=== PATIENT | male | born 1970 | race Caucasian/White ===

== ENCOUNTER 2021-03-18 21:31 | Inpatient (IN) ==
[2021-03-19] MEDS ORDERED: Naloxone 0.4 MG/ML INJ IVP PRN (00:16)
[2021-03-19] MEDS ORDERED: Melatonin 3 MG TABLET PO PRN (00:16)
[2021-03-19] MEDS ORDERED: *HR* Heparin 5,000 UNIT/ML VIAL IVP PRN ×2 (00:23→00:51)
[2021-03-19] MEDS ORDERED: Heparin 25,000UNIT/250ML 1/2NS 25,000 UNIT/250 ML IV.SOLN IVC SCH (00:30)
[2021-03-19 02:02] LABS: Amphetamine Screen,Urine Negative ng/mL (Cutoff=1000); Barbiturate Screen,Urine Negative ng/mL (Cutoff=200); Benzodiazepines Screen,Urine Negative ng/mL (Cutoff=200); Cannabinoid Screen,Urine Negative ng/mL (Cutoff = 50); Cocaine Screen,Urine Negative ng/mL (Cutoff= 300); Opiate Screen,Urine Negative ng/mL (Cutoff=300); Phencyclidine Screen,Urine Negative ng/mL (Cutoff=25)
[2021-03-19 02:36] LABS: ABG Base Excess 7 mEq/L (-2 to 3); ABG HCO3 38 mEq/L (21-27); ABG Oxygen Saturation 95 % (95-98); ABG PCO2 73 mmHg (35-45); ABG PH 7.33 pH Units (7.32-7.45); ABG PO2 87 mmHg (85-104); ABG TCO2 40 mEq/L (20-26)
[2021-03-19 04:39] LABS: Hematocrit 57.7 % (37.5-50.1); Hemoglobin 17.9 g/dL (12.9-16.9); Mean Corpuscular Hemoglobin 29.5 pg (28.0-33.3); Mean Corpuscular Volume 95.2 fL (83.0-100.0); Mean Platelet Volume 11.1 fL (9.4-12.4); Nucleated Red Blood Cells 0.4 /100 WBC (0); Platelet Count 161 K/mcL (140-400); Red Blood Count 6.06 M/mcL (4.19-5.50); Red Cell Distribution Width 16.2 % (11.5-14.5); White Blood Count 5.5 K/mcL (4.3-11.1)
[2021-03-19 04:47] LABS: Albumin 3.2 g/dL (3.5-5.7); Albumin/Globulin Ratio 0.9 (1.1-2.2); Bilirubin,Direct 0.2 mg/dL (0.0-0.2); Bilirubin,Indirect 0.9 mg/dL (0.0-1.0); Bilirubin,Total 1.1 mg/dL (0.3-1.0); C-Reactive Protein 42 mg/L (Less than 10); Globulin 3.7 g/dL (2.4-3.5); Total Protein 6.9 g/dL (6.4-8.9)
[2021-03-19 05:01] LABS: BUN/Creatinine Ratio 20 (6-26); Blood Urea Nitrogen 12 mg/dL (6-20); Calcium 8.9 mg/dL (8.6-10.3); Carbon Dioxide 35 mEq/L (23-29); Chloride 100 mEq/L (98-107); Ethanol < 10 mg/dL (Less than 10); Glucose 190 mg/dL (70-105); Magnesium 2.1 mg/dL (1.6-2.6); Osmolality,Calculated 295 (280-300); Potassium 4.4 mEq/L (3.5-5.1); Sodium 140 mEq/L (136-145); eGFR For African Americans > 60 (> 60); eGFR For Non-African Americans > 60 (> 60)
[2021-03-19 05:03] LABS: Ferritin 137 ng/mL (20-250)
[2021-03-19 05:04] LABS: Estimated Average Glucose 255 mg/dl; Hemoglobin A1C 10.5 %
[2021-03-19 05:32] LABS: Heparin anti-factor XA UFH 0.24 IU/mL (0.30-0.70); INR 1.4; Prothrombin Time 15.5 Seconds (9.4-12.1)
[2021-03-19 05:44] LABS: Monocytes # 0.4 K/mcL (0.0-1.3); Neutrophils # 2.9 K/mcL (1.6-8.9); Platelet Estimate Normal (Normal); Reactive Lymphocytes Present (Not Present)
[2021-03-19] MEDS ORDERED: Lactulose 200 GM, Sodium Chloride IRRigation 700 ML RC ONE (08:22)
[2021-03-19] MEDS: cefTRIAXone 1,000 MG in Water for inj. (sterile) 10 ML IVP SCH (08:44)
[2021-03-19] MEDS ORDERED: Dexamethasone Sodium Phos/PF 10 MG/ML VIAL IVP SCH (09:00)
[2021-03-19] MEDS ORDERED: Perflutren Lipid Microsphere 1.3 ML in 0.9 % Sodium Chloride 8.7 ML IVP PRN (09:43)
[2021-03-19] MEDS: Heparin 25,000 UNIT/250 ML 25,000 UNIT/250 ML IV.SOLN IVC SCH (10:17)
[2021-03-19] MEDS ORDERED: Lactulose Oral Soln 20 GM/30 ML UDC PO ONE (11:19)
[2021-03-19] MEDS ORDERED: Azithromycin 500 MG in 0.9 % Sodium Chloride 250 ML IVPB SCH (18:00)
[2021-03-19] MEDS: Lactulose Oral Soln 20 GM/30 ML UDC PO SCH (19:49)
[2021-03-20] MEDS: Heparin 25,000 UNIT/250 ML 25,000 UNIT/250 ML IV.SOLN IVC SCH (03:12)
[2021-03-20 04:10] LABS: Basophils # 0.1 K/mcL (0.0-0.2); Basophils % 1.1 %; Hematocrit 54.8 % (37.5-50.1); Hemoglobin 16.8 g/dL (12.9-16.9); Immature Granulocytes % 1.1 % (0-4); Lymphocytes # 2.6 K/mcL (0.6-4.6); Lymphocytes % 31.1 %; Mean Corpuscular HGB Conc 30.7 g/dL (31.6-35.5); Mean Corpuscular Hemoglobin 28.6 pg (28.0-33.3); Mean Corpuscular Volume 93.4 fL (83.0-100.0); Mean Platelet Volume 11.4 fL (9.4-12.4); Monocytes # 0.9 K/mcL (0.0-1.3); Monocytes % 10.7 %; Neutrophils # 4.6 K/mcL (1.6-8.9); Platelet Count 165 K/mcL (140-400); Red Blood Count 5.87 M/mcL (4.19-5.50); Red Cell Distribution Width 15.8 % (11.5-14.5); White Blood Count 8.2 K/mcL (4.3-11.1)
[2021-03-20 04:27] LABS: BUN/Creatinine Ratio 27 (6-26); Blood Urea Nitrogen 15 mg/dL (6-20); Calcium 8.8 mg/dL (8.6-10.3); Carbon Dioxide 36 mEq/L (23-29); Chloride 100 mEq/L (98-107); Glucose 151 mg/dL (70-105); Magnesium 2.3 mg/dL (1.6-2.6); Osmolality,Calculated 294 (280-300); Potassium 3.9 mEq/L (3.5-5.1); Sodium 140 mEq/L (136-145); eGFR For African Americans > 60 (> 60); eGFR For Non-African Americans > 60 (> 60)
[2021-03-20 04:52] LABS: Platelet Estimate Normal (Normal); Reactive Lymphocytes Present (Not Present)
[2021-03-20] MEDS ORDERED: *HR* Dextrose 50 % in Water (Syg) 50 ML SYRINGE IVP PRN ×2 (07:46→12:44)
[2021-03-20] MEDS ORDERED: D5% in Water 1,000 ML IVC PRN ×2 (07:46→12:44)
[2021-03-20] MEDS ORDERED: Dextrose Gel 15 GM/37.5 ML TUBE PO PRN ×4 (07:46→12:44)
[2021-03-20] MEDS: cefTRIAXone 1,000 MG in Water for inj. (sterile) 10 ML IVP SCH (08:20)
[2021-03-20] MEDS: Lactulose Oral Soln 20 GM/30 ML UDC PO SCH ×2 (08:21→20:08)
[2021-03-20] MEDS: Insulin LISPRO 300 UNITS/3 ML VIAL SUBQ SCH ×4 (08:50→20:09)
[2021-03-20] MEDS ORDERED: Naloxone 0.4 MG/ML INJ IVP PRN (12:44)
[2021-03-20] MEDS: Methadone Oral Concentrate 50 MG/5 ML UDC PO SCH (13:08)
[2021-03-20] MEDS: Nicotine 21 MG PATCH.TD24 TD SCH (14:50)
[2021-03-20] MEDS ORDERED: Azithromycin 500 MG in 0.9 % Sodium Chloride 250 ML IVPB SCH (18:00)
[2021-03-21] MEDS: Insulin LISPRO 300 UNITS/3 ML VIAL SUBQ SCH ×7 (00:21→23:39)
[2021-03-21 04:30] LABS: Basophils % 0.4 %; Hematocrit 53.6 % (37.5-50.1); Hemoglobin 16.7 g/dL (12.9-16.9); Lymphocytes # 2.1 K/mcL (0.6-4.6); Lymphocytes % 25.9 %; Mean Corpuscular HGB Conc 31.2 g/dL (31.6-35.5); Mean Corpuscular Hemoglobin 28.9 pg (28.0-33.3); Mean Corpuscular Volume 92.7 fL (83.0-100.0); Mean Platelet Volume 11.2 fL (9.4-12.4); Monocytes # 0.9 K/mcL (0.0-1.3); Monocytes % 11.5 %; Platelet Count 159 K/mcL (140-400); Red Blood Count 5.78 M/mcL (4.19-5.50); Red Cell Distribution Width 15.7 % (11.5-14.5); Segmented Neutrophils % 61.2 %; White Blood Count 8.1 K/mcL (4.3-11.1)
[2021-03-21 04:45] LABS: Alanine Aminotransferase 35 Units/L (7-52); Albumin 2.9 g/dL (3.5-5.7); Albumin/Globulin Ratio 0.9 (1.1-2.2); Alkaline Phosphatase 99 Units/L (34-104); Aspartate Amino Transferase 39 Units/L (13-39); BUN/Creatinine Ratio 29 (6-26); Bilirubin,Direct 0.2 mg/dL (0.0-0.2); Bilirubin,Indirect 0.6 mg/dL (0.0-1.0); Bilirubin,Total 0.8 mg/dL (0.3-1.0); Blood Urea Nitrogen 16 mg/dL (6-20); Calcium 8.9 mg/dL (8.6-10.3); Carbon Dioxide 36 mEq/L (23-29); Chloride 101 mEq/L (98-107); Globulin 3.4 g/dL (2.4-3.5); Glucose 112 mg/dL (70-105); Magnesium 2.2 mg/dL (1.6-2.6); Osmolality,Calculated 290 (280-300); Potassium 4.4 mEq/L (3.5-5.1); Sodium 139 mEq/L (136-145); Total Protein 6.3 g/dL (6.4-8.9); eGFR For African Americans > 60 (> 60); eGFR For Non-African Americans > 60 (> 60)
[2021-03-21 04:52] LABS: Platelet Estimate Normal (Normal)
[2021-03-21] MEDS: *HR* Enoxaparin 40 MG/0.4 ML SYRINGE SQ SCH (06:16)
[2021-03-21] MEDS: Methadone Oral Concentrate 50 MG/5 ML UDC PO SCH (08:11)
[2021-03-21] MEDS: Lactulose Oral Soln 20 GM/30 ML UDC PO SCH ×2 (08:11→20:02)
[2021-03-21] MEDS: Nicotine 21 MG PATCH.TD24 TD SCH (08:12)
[2021-03-21] MEDS ORDERED: cefTRIAXone 1,000 MG in Water for inj. (sterile) 10 ML IVP SCH (09:00)
[2021-03-21 15:17] LABS: ABG Base Excess 4 mEq/L (-2 to 3); ABG HCO3 38 mEq/L (21-27); ABG Oxygen Saturation 98 % (95-98); ABG PCO2 92 mmHg (35-45); ABG PH 7.22 pH Units (7.32-7.45); ABG PO2 124 mmHg (85-104); ABG TCO2 40 mEq/L (20-26)
[2021-03-21 16:29] LABS: ABG Base Excess 5 mEq/L (-2 to 3); ABG HCO3 35 mEq/L (21-27); ABG Oxygen Saturation 96 % (95-98); ABG PCO2 69 mmHg (35-45); ABG PH 7.31 pH Units (7.32-7.45); ABG PO2 92 mmHg (85-104); ABG TCO2 37 mEq/L (20-26)
[2021-03-22 03:42] LABS: Hemoglobin 16.8 g/dL (12.9-16.9); Mean Corpuscular HGB Conc 30.2 g/dL (31.6-35.5); Mean Corpuscular Hemoglobin 28.1 pg (28.0-33.3); Mean Corpuscular Volume 93.1 fL (83.0-100.0); Mean Platelet Volume 10.8 fL (9.4-12.4); Platelet Count 145 K/mcL (140-400); Red Blood Count 5.98 M/mcL (4.19-5.50); Red Cell Distribution Width 15.6 % (11.5-14.5); White Blood Count 9.3 K/mcL (4.3-11.1)
[2021-03-22 03:58] LABS: BUN/Creatinine Ratio 22 (6-26); Blood Urea Nitrogen 12 mg/dL (6-20); Calcium 8.9 mg/dL (8.6-10.3); Carbon Dioxide 35 mEq/L (23-29); Chloride 98 mEq/L (98-107); Glucose 102 mg/dL (70-105); Osmolality,Calculated 284 (280-300); Potassium 4.3 mEq/L (3.5-5.1); Sodium 137 mEq/L (136-145); eGFR For African Americans > 60 (> 60); eGFR For Non-African Americans > 60 (> 60)
[2021-03-22 03:59] LABS: Hematocrit 55.7 % (37.5-50.1)
[2021-03-22] MEDS: Insulin LISPRO 300 UNITS/3 ML VIAL SUBQ SCH ×6 (04:09→23:56)
[2021-03-22] MEDS: *HR* Enoxaparin 40 MG/0.4 ML SYRINGE SQ SCH (05:04)
[2021-03-22] MEDS: Nicotine 21 MG PATCH.TD24 TD SCH (08:34)
[2021-03-22] MEDS: Methadone Oral Concentrate 50 MG/5 ML UDC PO SCH ×2 (09:20→14:05)
[2021-03-22] MEDS: Lactulose Oral Soln 20 GM/30 ML UDC PO SCH ×2 (12:12→20:23)
[2021-03-22] MEDS ORDERED: *HR* LORazepam 2 MG/ML VIAL IVP PRN (13:47)
[2021-03-22] MEDS ORDERED: *HR* LORazepam 2 MG/ML VIAL IVP ONE ×2 (13:48→13:49)
[2021-03-22] MEDS: *HR* LORazepam 2 MG/ML VIAL IVP PRN ×2 (16:46→21:35)
[2021-03-22] MEDS: Thiamine (B-1) 100 MG, Folic Acid 1 MG, MVI, adult with vitamin K 10 ML in 0.9 % Sodi... IVPB SCH (16:47)
[2021-03-23] MEDS: *HR* LORazepam 2 MG/ML VIAL IVP PRN ×2 (02:51→21:32)
[2021-03-23] MEDS: Insulin LISPRO 300 UNITS/3 ML VIAL SUBQ SCH ×5 (03:14→20:54)
[2021-03-23 04:00] LABS: Hemoglobin 17.5 g/dL (12.9-16.9); Mean Corpuscular Hemoglobin 28.5 pg (28.0-33.3); Mean Corpuscular Volume 92.5 fL (83.0-100.0)
[2021-03-23 04:02] LABS: Immature Platelets 7.7 % (1.1-6.1); Mean Corpuscular HGB Conc 30.8 g/dL (31.6-35.5); Mean Platelet Volume 11.2 fL (9.4-12.4); Red Blood Count 6.15 M/mcL (4.19-5.50); Red Cell Distribution Width 15.6 % (11.5-14.5); White Blood Count 10.1 K/mcL (4.3-11.1)
[2021-03-23 04:07] LABS: Hematocrit 56.9 % (37.5-50.1)
[2021-03-23 04:22] LABS: BUN/Creatinine Ratio 22 (6-26); Blood Urea Nitrogen 12 mg/dL (6-20); Carbon Dioxide 34 mEq/L (23-29); Chloride 99 mEq/L (98-107); Glucose 102 mg/dL (70-105); Osmolality,Calculated 286 (280-300); Potassium 4.3 mEq/L (3.5-5.1); Sodium 138 mEq/L (136-145); eGFR For African Americans > 60 (> 60); eGFR For Non-African Americans > 60 (> 60)
[2021-03-23] MEDS: *HR* Enoxaparin 40 MG/0.4 ML SYRINGE SQ SCH (05:18)
[2021-03-23] MEDS: Methadone Oral Concentrate 50 MG/5 ML UDC PO SCH (08:31)
[2021-03-23] MEDS: Lactulose Oral Soln 20 GM/30 ML UDC PO SCH ×3 (08:32→20:13)
[2021-03-23] MEDS: Nicotine 21 MG PATCH.TD24 TD SCH (08:32)
[2021-03-23 12:23] LABS: ABG Base Excess 5 mEq/L (-2 to 3); ABG HCO3 33 mEq/L (21-27); ABG Oxygen Saturation 92 % (95-98); ABG PCO2 59 mmHg (35-45); ABG PH 7.36 pH Units (7.32-7.45); ABG PO2 68 mmHg (85-104); ABG TCO2 35 mEq/L (20-26)
[2021-03-23] MEDS ORDERED: Lactulose Oral Soln 20 GM/30 ML UDC PO SCH (15:00)
[2021-03-23] MEDS: Thiamine (B-1) 100 MG, Folic Acid 1 MG, MVI, adult with vitamin K 10 ML in 0.9 % Sodi... IVPB SCH (17:45)
[2021-03-24] MEDS: Insulin LISPRO 300 UNITS/3 ML VIAL SUBQ SCH ×7 (01:18→23:48)
[2021-03-24] MEDS: *HR* LORazepam 2 MG/ML VIAL IVP PRN (02:02)
[2021-03-24] MEDS: *HR* Enoxaparin 40 MG/0.4 ML SYRINGE SQ SCH (05:38)
[2021-03-24] MEDS: Nicotine 21 MG PATCH.TD24 TD SCH (08:21)
[2021-03-24] MEDS: Lactulose Oral Soln 20 GM/30 ML UDC PO SCH ×3 (08:24→21:06)
[2021-03-24] MEDS: Methadone Oral Concentrate 50 MG/5 ML UDC PO SCH (09:42)
[2021-03-24 10:29] LABS: ABG Base Excess 7 mEq/L (-2 to 3); ABG HCO3 35 mEq/L (21-27); ABG Oxygen Saturation 91 % (95-98); ABG PCO2 56 mmHg (35-45); ABG PO2 62 mmHg (85-104); ABG TCO2 36 mEq/L (20-26)
[2021-03-24] MEDS: Thiamine (B-1) 100 MG, Folic Acid 1 MG, MVI, adult with vitamin K 10 ML in 0.9 % Sodi... IVPB SCH (19:18)
[2021-03-25] MEDS ORDERED: *HR* LORazepam 2 MG/ML VIAL IVP ONE ×4 (00:13→16:49)
[2021-03-25] MEDS: Insulin LISPRO 300 UNITS/3 ML VIAL SUBQ SCH ×5 (04:05→21:41)
[2021-03-25] MEDS: *HR* Enoxaparin 40 MG/0.4 ML SYRINGE SQ SCH (05:12)
[2021-03-25 05:16] LABS: Hemoglobin 18.3 g/dL (12.9-16.9)
[2021-03-25 05:18] LABS: Immature Platelets 12.1 % (1.1-6.1); Mean Corpuscular Hemoglobin 29.2 pg (28.0-33.3); Mean Corpuscular Volume 91.4 fL (83.0-100.0); Mean Platelet Volume 11.6 fL (9.4-12.4); Red Blood Count 6.26 M/mcL (4.19-5.50); Red Cell Distribution Width 15.3 % (11.5-14.5); White Blood Count 10.9 K/mcL (4.3-11.1)
[2021-03-25 05:22] LABS: Hematocrit 57.2 % (37.5-50.1)
[2021-03-25 05:32] LABS: BUN/Creatinine Ratio 25 (6-26); Blood Urea Nitrogen 14 mg/dL (6-20); Calcium 9.6 mg/dL (8.6-10.3); Carbon Dioxide 30 mEq/L (23-29); Chloride 98 mEq/L (98-107); Glucose 101 mg/dL (70-105); Osmolality,Calculated 283 (280-300); Potassium 3.9 mEq/L (3.5-5.1); Sodium 136 mEq/L (136-145); eGFR For African Americans > 60 (> 60); eGFR For Non-African Americans > 60 (> 60)
[2021-03-25] MEDS: Nicotine 21 MG PATCH.TD24 TD SCH (08:00)
[2021-03-25] MEDS: Lactulose Oral Soln 20 GM/30 ML UDC PO SCH ×3 (08:00→20:34)
[2021-03-25] MEDS: Methadone Oral Concentrate 50 MG/5 ML UDC PO SCH (08:01)
[2021-03-25] MEDS ORDERED: *HR* LORazepam 2 MG/ML VIAL ONE (16:43)
[2021-03-25] MEDS ORDERED: Haloperidol Lactate 5 MG/ML VIAL IVP ONE (16:50)
[2021-03-25 17:08] LABS: ABG Base Excess 5 mEq/L (-2 to 3); ABG HCO3 31 mEq/L (21-27); ABG Oxygen Saturation 91 % (95-98); ABG PCO2 48 mmHg (35-45); ABG PH 7.42 pH Units (7.32-7.45); ABG PO2 62 mmHg (85-104); ABG TCO2 32 mEq/L (20-26)
[2021-03-25 18:17] LABS: Iron 236 mcg/dL (65-175)
[2021-03-25 18:36] LABS: Ferritin 343 ng/mL (20-250)
[2021-03-25] MEDS: QUEtiapine Fumarate 25 MG TABLET PO SCH (20:34)
[2021-03-25] MEDS ORDERED: Haloperidol Lactate 5 MG/ML VIAL IVP STA (21:44)
[2021-03-26] MEDS: Insulin LISPRO 300 UNITS/3 ML VIAL SUBQ SCH ×6 (02:59→21:43)
[2021-03-26 05:07] LABS: Hemoglobin 17.9 g/dL (12.9-16.9); Immature Platelets 10.2 % (1.1-6.1); Mean Corpuscular HGB Conc 32.3 g/dL (31.6-35.5); Mean Corpuscular Hemoglobin 28.8 pg (28.0-33.3); Mean Corpuscular Volume 89.1 fL (83.0-100.0); Mean Platelet Volume 11.4 fL (9.4-12.4); Red Blood Count 6.22 M/mcL (4.19-5.50); Red Cell Distribution Width 15.2 % (11.5-14.5); White Blood Count 7.3 K/mcL (4.3-11.1)
[2021-03-26 05:09] LABS: Hematocrit 55.4 % (37.5-50.1)
[2021-03-26] MEDS: *HR* Enoxaparin 40 MG/0.4 ML SYRINGE SQ SCH (05:16)
[2021-03-26] MEDS: Thiamine (B-1) 100 MG, Folic Acid 1 MG, MVI, adult with vitamin K 10 ML in 0.9 % Sodi... IVPB SCH ×2 (05:16→18:55)
[2021-03-26 05:18] LABS: INR 1.3; Prothrombin Time 14.8 Seconds (9.4-12.1)
[2021-03-26 05:21] LABS: Alanine Aminotransferase 108 Units/L (7-52); Albumin 3.2 g/dL (3.5-5.7); Albumin/Globulin Ratio 0.9 (1.1-2.2); Alkaline Phosphatase 82 Units/L (34-104); Aspartate Amino Transferase 54 Units/L (13-39); BUN/Creatinine Ratio 21 (6-26); Bilirubin,Direct 0.5 mg/dL (0.0-0.2); Bilirubin,Total 2.5 mg/dL (0.3-1.0); Blood Urea Nitrogen 10 mg/dL (6-20); Calcium 9.3 mg/dL (8.6-10.3); Carbon Dioxide 28 mEq/L (23-29); Chloride 102 mEq/L (98-107); Globulin 3.4 g/dL (2.4-3.5); Glucose 93 mg/dL (70-105); Osmolality,Calculated 281 (280-300); Potassium 3.9 mEq/L (3.5-5.1); Sodium 136 mEq/L (136-145); Total Protein 6.6 g/dL (6.4-8.9); eGFR For African Americans > 60 (> 60); eGFR For Non-African Americans > 60 (> 60)
[2021-03-26] MEDS: Nicotine 21 MG PATCH.TD24 TD SCH (09:09)
[2021-03-26] MEDS: Lactulose Oral Soln 20 GM/30 ML UDC PO SCH ×3 (09:09→21:44)
[2021-03-26] MEDS: Methadone Oral Concentrate 50 MG/5 ML UDC PO SCH (09:10)
[2021-03-26] MEDS: QUEtiapine Fumarate 25 MG TABLET PO SCH (21:43)
[2021-03-27] MEDS: Insulin LISPRO 300 UNITS/3 ML VIAL SUBQ SCH ×6 (00:11→20:15)
[2021-03-27] MEDS: *HR* Enoxaparin 40 MG/0.4 ML SYRINGE SQ SCH (06:21)
[2021-03-27] MEDS ORDERED: *HR* LORazepam 2 MG/ML VIAL IVP STA (08:06)
[2021-03-27] MEDS: Nicotine 21 MG PATCH.TD24 TD SCH (08:13)
[2021-03-27] MEDS: Lactulose Oral Soln 20 GM/30 ML UDC PO SCH ×3 (08:14→22:46)
[2021-03-27] MEDS: Methadone Oral Concentrate 50 MG/5 ML UDC PO SCH (08:14)
[2021-03-27] MEDS ORDERED: Haloperidol Lactate 5 MG/ML VIAL IVP ONE (09:11)
[2021-03-27] MEDS ORDERED: *HR* LORazepam 1 MG TABLET PO STA (09:12)
[2021-03-27] MEDS ORDERED: *HR* LORazepam 2 MG/ML VIAL IVP ONE (09:15)
[2021-03-27 15:06] LABS: AFP Tumor Marker Non-Pregnant 3 ng/mL (0-9)
[2021-03-27] MEDS: Thiamine (B-1) 100 MG, Folic Acid 1 MG, MVI, adult with vitamin K 10 ML in 0.9 % Sodi... IVPB SCH (18:15)
[2021-03-27 18:43] LABS: Iron 126 mcg/dL (65-175)
[2021-03-27] MEDS: QUEtiapine Fumarate 25 MG TABLET PO SCH (22:46)
[2021-03-28] MEDS: Insulin LISPRO 300 UNITS/3 ML VIAL SUBQ SCH ×6 (03:13→20:15)
[2021-03-28] MEDS: *HR* Enoxaparin 40 MG/0.4 ML SYRINGE SQ SCH (05:54)
[2021-03-28 06:32] LABS: BUN/Creatinine Ratio 18 (6-26); Blood Urea Nitrogen 9 mg/dL (6-20); Calcium 9.1 mg/dL (8.6-10.3); Carbon Dioxide 27 mEq/L (23-29); Chloride 103 mEq/L (98-107); Glucose 135 mg/dL (70-105); Osmolality,Calculated 283 (280-300); Potassium 3.9 mEq/L (3.5-5.1); Sodium 136 mEq/L (136-145); eGFR For African Americans > 60 (> 60); eGFR For Non-African Americans > 60 (> 60)
[2021-03-28] MEDS: Lactulose Oral Soln 20 GM/30 ML UDC PO SCH ×3 (10:00→20:14)
[2021-03-28] MEDS: Nicotine 21 MG PATCH.TD24 TD SCH (10:17)
[2021-03-28] MEDS ORDERED: *HR* LORazepam 2 MG/ML VIAL IVP ONE (10:23)
[2021-03-28] MEDS: Methadone Oral Concentrate 50 MG/5 ML UDC PO SCH (10:42)
[2021-03-28 13:16] LABS: ANA IgG by ELISA NONE DETECTED (None Detected)
[2021-03-28 13:26] LABS: F-Actin (sm muscle) Ab IgG 21 Units (0-19)
[2021-03-28] MEDS: *HR* LORazepam 2 MG/ML VIAL IVP PRN (18:35)
[2021-03-28] MEDS: QUEtiapine Fumarate 25 MG TABLET PO SCH (20:14)
[2021-03-29] MEDS: Insulin LISPRO 300 UNITS/3 ML VIAL SUBQ SCH ×7 (00:15→22:16)
[2021-03-29] MEDS: *HR* LORazepam 2 MG/ML VIAL IVP PRN ×4 (04:27→18:54)
[2021-03-29 07:06] LABS: BUN/Creatinine Ratio 17 (6-26); Blood Urea Nitrogen 9 mg/dL (6-20); Calcium 9.3 mg/dL (8.6-10.3); Carbon Dioxide 26 mEq/L (23-29); Chloride 101 mEq/L (98-107); Glucose 212 mg/dL (70-105); Osmolality,Calculated 287 (280-300); Potassium 3.8 mEq/L (3.5-5.1); Sodium 136 mEq/L (136-145); eGFR For African Americans > 60 (> 60); eGFR For Non-African Americans > 60 (> 60)
[2021-03-29] MEDS: *HR* Enoxaparin 40 MG/0.4 ML SYRINGE SQ SCH (08:14)
[2021-03-29] MEDS: Lactulose Oral Soln 20 GM/30 ML UDC PO SCH ×3 (08:22→22:16)
[2021-03-29] MEDS: Methadone Oral Concentrate 50 MG/5 ML UDC PO SCH (08:26)
[2021-03-29] MEDS: Nicotine 21 MG PATCH.TD24 TD SCH (08:27)
[2021-03-29] MEDS: QUEtiapine Fumarate 25 MG TABLET PO SCH (22:16)
[2021-03-30] MEDS: Insulin LISPRO 300 UNITS/3 ML VIAL SUBQ SCH ×5 (02:36→18:00)
[2021-03-30] MEDS: *HR* Enoxaparin 40 MG/0.4 ML SYRINGE SQ SCH (05:49)
[2021-03-30] MEDS: Methadone Oral Concentrate 50 MG/5 ML UDC PO SCH (07:42)
[2021-03-30] MEDS: Nicotine 21 MG PATCH.TD24 TD SCH (07:43)
[2021-03-30] MEDS: Lactulose Oral Soln 20 GM/30 ML UDC PO SCH ×3 (07:43→20:21)
[2021-03-30] MEDS: *HR* LORazepam 2 MG/ML VIAL IVP PRN ×3 (08:36→20:20)
[2021-03-30 09:57] LABS: % Iron Saturation 86 % (20-55); Transferrin 196 mg/dL (200-400)
[2021-03-30 10:04] LABS: Serine Protease-3 Antibody 2 AU/mL (0-19)
[2021-03-30] MEDS ORDERED: *HR* LORazepam 2 MG/ML VIAL IVP ONE (10:12)
[2021-03-30 10:28] LABS: Smooth Muscle Ab Titer IgG <1:20 (<1:20)
[2021-03-30 10:33] LABS: % Iron Saturation 49 % (20-55); Transferrin 185 mg/dL (200-400)
[2021-03-30] MEDS: Gabapentin 100 MG CAPSULE PO SCH ×2 (15:05→20:21)
[2021-03-30] MEDS: QUEtiapine Fumarate 25 MG TABLET PO SCH (20:20)
[2021-03-31] MEDS: *HR* LORazepam 2 MG/ML VIAL IVP PRN ×3 (02:01→21:10)
[2021-03-31] MEDS: Insulin LISPRO 300 UNITS/3 ML VIAL SUBQ SCH ×6 (02:14→21:20)
[2021-03-31] MEDS: *HR* Enoxaparin 40 MG/0.4 ML SYRINGE SQ SCH (06:17)
[2021-03-31] MEDS: Lactulose Oral Soln 20 GM/30 ML UDC PO SCH ×3 (08:25→21:11)
[2021-03-31] MEDS: Methadone Oral Concentrate 50 MG/5 ML UDC PO SCH (08:26)
[2021-03-31] MEDS: Gabapentin 100 MG CAPSULE PO SCH ×3 (08:27→21:54)
[2021-03-31] MEDS: Nicotine 21 MG PATCH.TD24 TD SCH (08:27)
[2021-03-31] MEDS: QUEtiapine Fumarate 25 MG TABLET PO SCH (21:19)
[2021-04-01] MEDS: *HR* LORazepam 2 MG/ML VIAL IVP PRN (04:48)
[2021-04-01] MEDS: Insulin LISPRO 300 UNITS/3 ML VIAL SUBQ SCH ×5 (04:49→20:02)
[2021-04-01] MEDS: *HR* Enoxaparin 40 MG/0.4 ML SYRINGE SQ SCH (04:49)
[2021-04-01] MEDS: Gabapentin 100 MG CAPSULE PO SCH ×3 (10:09→20:02)
[2021-04-01] MEDS: Lactulose Oral Soln 20 GM/30 ML UDC PO SCH ×3 (10:09→20:02)
[2021-04-01] MEDS: Methadone Oral Concentrate 50 MG/5 ML UDC PO SCH (10:09)
[2021-04-01] MEDS: Nicotine 21 MG PATCH.TD24 TD SCH (10:11)
[2021-04-01] MEDS: QUEtiapine Fumarate 25 MG TABLET PO SCH (20:02)
[2021-04-02] MEDS: Melatonin 3 MG TABLET PO SCH ×2 (06:14→22:33)
[2021-04-02] MEDS: Insulin LISPRO 300 UNITS/3 ML VIAL SUBQ SCH ×6 (06:15→20:45)
[2021-04-02] MEDS: *HR* Enoxaparin 40 MG/0.4 ML SYRINGE SQ SCH (06:15)
[2021-04-02] MEDS: Lactulose Oral Soln 20 GM/30 ML UDC PO SCH ×3 (08:52→22:32)
[2021-04-02] MEDS: Nicotine 21 MG PATCH.TD24 TD SCH (08:52)
[2021-04-02] MEDS: Gabapentin 100 MG CAPSULE PO SCH ×4 (08:52→22:33)
[2021-04-02] MEDS: Aspirin 81 MG TAB.CHEW PO SCH (08:52)
[2021-04-02] MEDS: QUEtiapine Fumarate 25 MG TABLET PO SCH ×2 (08:52→22:33)
[2021-04-02] MEDS ORDERED: Haloperidol Lactate 5 MG/ML VIAL IVP ONE (16:01)
[2021-04-02] MEDS ORDERED: Haloperidol Lactate 5 MG/ML VIAL IM PRN (17:17)
[2021-04-02] MEDS ORDERED: Haloperidol Lactate 5 MG/ML VIAL IM ONE (17:33)
[2021-04-02] MEDS ORDERED: *HR* LORazepam 2 MG/ML VIAL IM PRN (17:33)
[2021-04-03 01:33] LABS: Hematocrit 49.5 % (37.5-50.1); Hemoglobin 15.7 g/dL (12.9-16.9); Immature Platelets 8.9 % (1.1-6.1); Mean Corpuscular HGB Conc 31.7 g/dL (31.6-35.5); Mean Corpuscular Hemoglobin 28.9 pg (28.0-33.3); Mean Corpuscular Volume 91.2 fL (83.0-100.0); Mean Platelet Volume 11.6 fL (9.4-12.4); Red Blood Count 5.43 M/mcL (4.19-5.50); Red Cell Distribution Width 15.2 % (11.5-14.5); White Blood Count 8.7 K/mcL (4.3-11.1)
[2021-04-03 01:54] LABS: Alanine Aminotransferase 136 Units/L (7-52); Alkaline Phosphatase 71 Units/L (34-104); Aspartate Amino Transferase 58 Units/L (13-39); BUN/Creatinine Ratio 14 (6-26); Bilirubin,Total 2.2 mg/dL (0.3-1.0); Blood Urea Nitrogen 6 mg/dL (6-20); Calcium 8.8 mg/dL (8.6-10.3); Carbon Dioxide 27 mEq/L (23-29); Chloride 103 mEq/L (98-107); Globulin 2.9 g/dL (2.4-3.5); Glucose 139 mg/dL (70-105); Osmolality,Calculated 284 (280-300); Potassium 3.7 mEq/L (3.5-5.1); Sodium 137 mEq/L (136-145); Total Protein 5.9 g/dL (6.4-8.9); eGFR For African Americans > 60 (> 60); eGFR For Non-African Americans > 60 (> 60)
[2021-04-03] MEDS: *HR* Enoxaparin 40 MG/0.4 ML SYRINGE SQ SCH (05:31)
[2021-04-03] MEDS: Insulin LISPRO 300 UNITS/3 ML VIAL SUBQ SCH ×5 (05:42→21:49)
[2021-04-03] MEDS: Gabapentin 100 MG CAPSULE PO SCH ×3 (09:26→21:48)
[2021-04-03] MEDS: Lactulose Oral Soln 20 GM/30 ML UDC PO SCH ×4 (09:26→21:48)
[2021-04-03] MEDS: QUEtiapine Fumarate 25 MG TABLET PO SCH ×2 (09:27→21:48)
[2021-04-03] MEDS: Nicotine 21 MG PATCH.TD24 TD SCH (09:27)
[2021-04-03] MEDS: Aspirin 81 MG TAB.CHEW PO SCH (09:27)
[2021-04-03] MEDS: Melatonin 3 MG TABLET PO SCH (21:48)
[2021-04-03] MEDS ORDERED: Ibuprofen 400 MG TABLET PO PRN (22:18)
[2021-04-04] MEDS: *HR* Enoxaparin 40 MG/0.4 ML SYRINGE SQ SCH (05:28)
[2021-04-04] MEDS: Lactulose Oral Soln 20 GM/30 ML UDC PO SCH ×4 (08:51→20:39)
[2021-04-04] MEDS: QUEtiapine Fumarate 25 MG TABLET PO SCH ×2 (08:51→20:35)
[2021-04-04] MEDS: Aspirin 81 MG TAB.CHEW PO SCH (08:51)
[2021-04-04] MEDS: Gabapentin 100 MG CAPSULE PO SCH ×3 (08:52→20:34)
[2021-04-04] MEDS: Nicotine 21 MG PATCH.TD24 TD SCH (08:52)
[2021-04-04] MEDS: Insulin LISPRO 300 UNITS/3 ML VIAL SUBQ SCH ×4 (08:52→20:39)
[2021-04-04] MEDS: Melatonin 3 MG TABLET PO SCH (20:34)
[2021-04-05] MEDS: *HR* Enoxaparin 40 MG/0.4 ML SYRINGE SQ SCH (05:38)
[2021-04-05] MEDS: Insulin LISPRO 300 UNITS/3 ML VIAL SUBQ SCH ×4 (09:15→21:32)
[2021-04-05] MEDS: Lactulose Oral Soln 20 GM/30 ML UDC PO SCH ×4 (09:15→21:32)
[2021-04-05] MEDS: QUEtiapine Fumarate 25 MG TABLET PO SCH ×2 (09:16→21:30)
[2021-04-05] MEDS: Aspirin 81 MG TAB.CHEW PO SCH (09:16)
[2021-04-05] MEDS: Gabapentin 100 MG CAPSULE PO SCH ×3 (09:16→21:30)
[2021-04-05] MEDS: Nicotine 21 MG PATCH.TD24 TD SCH (09:16)
[2021-04-05] MEDS: Melatonin 3 MG TABLET PO SCH (21:29)
[2021-04-06] MEDS: *HR* Enoxaparin 40 MG/0.4 ML SYRINGE SQ SCH (05:35)
[2021-04-06] MEDS: Aspirin 81 MG TAB.CHEW PO SCH (10:20)
[2021-04-06] MEDS: Gabapentin 100 MG CAPSULE PO SCH ×3 (10:20→20:22)
[2021-04-06] MEDS: QUEtiapine Fumarate 25 MG TABLET PO SCH ×2 (10:20→20:22)
[2021-04-06 10:21] LABS: Hematocrit 47.7 % (37.5-50.1); Hemoglobin 15.4 g/dL (12.9-16.9); Mean Corpuscular HGB Conc 32.3 g/dL (31.6-35.5); Mean Corpuscular Hemoglobin 29.2 pg (28.0-33.3); Mean Corpuscular Volume 90.5 fL (83.0-100.0); Mean Platelet Volume 12.3 fL (9.4-12.4); Platelet Count 106 K/mcL (140-400); Red Blood Count 5.27 M/mcL (4.19-5.50)
[2021-04-06] MEDS: Insulin LISPRO 300 UNITS/3 ML VIAL SUBQ SCH ×4 (10:21→20:21)
[2021-04-06] MEDS: Lactulose Oral Soln 20 GM/30 ML UDC PO SCH ×4 (10:21→20:21)
[2021-04-06] MEDS: Nicotine 21 MG PATCH.TD24 TD SCH (10:21)
[2021-04-06 10:39] LABS: Alanine Aminotransferase 62 Units/L (7-52); Alkaline Phosphatase 77 Units/L (34-104); Aspartate Amino Transferase 28 Units/L (13-39); BUN/Creatinine Ratio 9 (6-26); Bilirubin,Total 1.1 mg/dL (0.3-1.0); Blood Urea Nitrogen 5 mg/dL (6-20); Calcium 8.4 mg/dL (8.6-10.3); Carbon Dioxide 25 mEq/L (23-29); Chloride 104 mEq/L (98-107); Globulin 2.9 g/dL (2.4-3.5); Glucose 180 mg/dL (70-105); Magnesium 1.7 mg/dL (1.6-2.6); Osmolality,Calculated 282 (280-300); Potassium 3.3 mEq/L (3.5-5.1); Sodium 135 mEq/L (136-145); Total Protein 5.9 g/dL (6.4-8.9); eGFR For African Americans > 60 (> 60); eGFR For Non-African Americans > 60 (> 60)
[2021-04-06] MEDS: Melatonin 3 MG TABLET PO SCH (20:22)
[2021-04-07 02:37] LABS: Hematocrit 46.5 % (37.5-50.1); Hemoglobin 14.7 g/dL (12.9-16.9); Mean Corpuscular HGB Conc 31.6 g/dL (31.6-35.5); Mean Corpuscular Hemoglobin 28.7 pg (28.0-33.3); Mean Corpuscular Volume 90.8 fL (83.0-100.0); Mean Platelet Volume 11.6 fL (9.4-12.4); Platelet Count 104 K/mcL (140-400); Red Blood Count 5.12 M/mcL (4.19-5.50); Red Cell Distribution Width 14.6 % (11.5-14.5); White Blood Count 6.6 K/mcL (4.3-11.1)
[2021-04-07 02:49] LABS: Alanine Aminotransferase 54 Units/L (7-52); Albumin 2.9 g/dL (3.5-5.7); Alkaline Phosphatase 76 Units/L (34-104); Aspartate Amino Transferase 27 Units/L (13-39); BUN/Creatinine Ratio 6 (6-26); Blood Urea Nitrogen 4 mg/dL (6-20); Calcium 8.4 mg/dL (8.6-10.3); Carbon Dioxide 24 mEq/L (23-29); Chloride 107 mEq/L (98-107); Globulin 2.9 g/dL (2.4-3.5); Glucose 129 mg/dL (70-105); Magnesium 1.8 mg/dL (1.6-2.6); Osmolality,Calculated 283 (280-300); Potassium 3.3 mEq/L (3.5-5.1); Sodium 137 mEq/L (136-145); Total Protein 5.8 g/dL (6.4-8.9); eGFR For African Americans > 60 (> 60); eGFR For Non-African Americans > 60 (> 60)
[2021-04-07 03:22] VITALS: PULSE 67
[2021-04-07] MEDS: *HR* Enoxaparin 40 MG/0.4 ML SYRINGE SQ SCH (06:04)
[2021-04-07] MEDS: Insulin LISPRO 300 UNITS/3 ML VIAL SUBQ SCH ×2 (09:52→11:53)
[2021-04-07] MEDS: Aspirin 81 MG TAB.CHEW PO SCH (09:53)
[2021-04-07] MEDS: Gabapentin 100 MG CAPSULE PO SCH ×2 (09:53→15:39)
[2021-04-07] MEDS: Lactulose Oral Soln 20 GM/30 ML UDC PO SCH ×2 (09:53→11:54)
[2021-04-07] MEDS: QUEtiapine Fumarate 25 MG TABLET PO SCH (09:53)
[2021-04-07] MEDS: Nicotine 21 MG PATCH.TD24 TD SCH (09:53)
[2021-04-07 11:45] VITALS: BP 120/76; TEMP 98.4; O2SAT 99
== END 2021-04-07 16:00 | disposition home or self-care (01) | DRG 137 ==
LOC: EDBD → ICNU → SUATTDRO 03-19 00:16 → 3NENU 03-23 19:19 → UNDODISIN 03-26 18:45
PROVIDERS: ADMIT Student in an Organized Health Care Education/Training Program; ATTEND Internal Medicine